=== PATIENT | male | born 1990 | race Caucasian/White ===

== ENCOUNTER 2021-03-31 20:03 | Emergency (ER) | payer OTHER, SELFPAY ==
[2021-03-31 20:04] VITALS: BP 152/69; PULSE 80; RESP 16; TEMP 36.3; O2SAT 97; BMI 31.5
--- NOTE | 2021-03-31 20:58 | EX.ED.UPPERE ---
HPI History of Present Illness Chief Complaint: Laceration Narrative Narrative: Patient presents with a laceration of the right wrist which happened at work while working on machinery. He has no other injury. His tetanus is up-to-date. PFSH PFSH Allergy/AdvReac Type Severity Reaction Status Date / Time Penicillins Allergy PT UNSURE Verified 03/31/21 20:06 OF REACTION Social History Smoking Status: Never smoker ROS ROS ED ROS Narrative Past medical history: none Medications: Reviewed Social history: Noncontributory Review of systems: Musculoskeletal: Back as above Skin: Laceration as above Neurological: No weakness or paresthesias Hematologic: No easy bleeding or easy bruising EXAM Physical Exam Narrative Exam Narrative: Physical exam General: Patient does not appear in significant distress . Head: Normocephalic, Atraumatic Neck: No C-spine tenderness Cardiovascular: Normal distal pulses Back: Nontender, Normal Inspection. Extremities: Right wrist shows a horizontal 4 cm laceration over the ulnar side proximal to the ulnar styloid region. No tendon involvement. Full strength and sensation. Skin: Laceration as above Neurological: Normal strength and sensation Const Vital Signs: 03/31/21 20:04 Temperature 97.4 F L Temperature Source Temporal Pulse Rate 80 Respiratory Rate 16 Blood Pressure 152/69 H Blood Pressure Mean 96 Pulse Ox 97 Oxygen Delivery Method Room Air MDM MDM MDM Narrative Medical decision making narrative: Wound was sutured. Will be discharged in stable condition. Antibiotics are not warranted. Procedures Lacerations lac: Length: 1.57 in Depth: Skin Shape: Linear Prep: Shure-Clens Laceration repair: Debrideded Number of Sutures/Nilda: 4 Suture Information: Ethilon Comment: Verbal consent obtained. Patient tolerated procedure well. Discharge Plan Triage Chief Complaint: Laceration ED Provider: Hayes Lemus Dx/Rx/DC Orders Clinical Impression: Arm laceration Instructions: ED Laceration: All Closures Referrals: [facility] PHYSICIANS] - 10 Day for suture removal Disposition Disposition: Home, Self Care
[2021-03-31] MEDS: Lidocaine 1% (20 ml mdv) 20 ML Vial INFILT (21:13)
== END 2021-03-31 21:24 | disposition home or self-care (01) ==
LOC: ED 21:20
PROVIDERS: Emergency Provider Emergency Medicine
DX: S61.511A Laceration without foreign body of right wrist, initial encounter (principal); X58.XXXA Exposure to other specified factors, initial encounter
CPT/HCPCS: 12001; 99284

== ENCOUNTER 2022-05-17 19:31 | Emergency (ER) | payer OTHER, SELFPAY ==
[2022-05-17 19:32] VITALS: BP 170/96; PULSE 97; RESP 16; TEMP 36.2; O2SAT 98; BMI 34.4
--- NOTE | 2022-05-17 20:42 | ED.RN ---
NO [facility] [employer] DIRECTOR [employer] [facility], PT GIVEN THE ADDRESS AND INSTRUCTIONS TO GO TO [facility]ORNING
--- NOTE | 2022-05-17 21:04 | EDS_ITS ---
HPI History of Present Illness Chief Complaint: Laceration Informant: patient Narrative Narrative: Patient has a laceration of the lateral inferior portion of the right knee that occurred at work approximately 2 hours ago. He now recalls his tetanus is up-to-date as of about 4 years ago. He cut this on a piece of metal. The metal scraped up his leg and caused a tear of the skin. It did not actually cut through his pants at any time that he was wearing. He has not had any drainage from the wound of significance. He does not have knee pain with motion. Putting gauze on it made it better. Nothing makes it worse. PFSH PFSH Home Medications doxycycline monohydrate 100 mg capsule 100 mg PO BID #14 caps 05/17/22 [Rx Last Taken Unknown] Allergy/AdvReac Type Severity Reaction Status Date / Time Penicillins Allergy PT UNSURE Verified 05/17/22 19:36 OF REACTION Surgical History History of ankle surgery Social History Smoking Status: Never smoker ROS ROS ED Constitutional Constitutional ED: Denies fever(s) Gastrointestinal Gastrointestinal: Denies nausea or vomiting Musculoskeletal Musculoskeletal: Reports other Details: Injury to right knee as in history of present illness Integumentary Reports other Details: Laceration to right knee Neurologic Neurologic: Denies paresthesias Psychiatric Psychiatric: Denies suicidal ideation Hematologic/Lymphatic Hematologic/Lymphatic: Denies easy bleeding or easy bruising EXAM Physical Exam Const Vital Signs: 05/17/22 19:32 Temperature 97.2 F L Temperature Source Temporal Pulse Rate 97 Respiratory Rate 16 Blood Pressure 170/96 H Blood Pressure Mean 120 Pulse Ox 98 Oxygen Delivery Method Room Air Positive well nourished and well developed General Appearance ED: well developed and NAD HEENT normocephalic and atraumatic Chest Wall inspection of chest normal Resp normal respiratory effort Extremity Extremity Narrative: There is a V shaped laceration with total length of about 4 cm at the inferior lateral aspect of the right knee. No bleeding or fluid. No fat globules. There is a slight abrasion of the skin above and below this. The pants that were covering this are actually not torn. This leads me to believe that the metal pressed in to the skin and tore this up. This is consistent with the jagged and irregular edges. There is no pain with knee motion. Clinically this does not appear to be into the joint. Neuro Sensorium / Orientation: alert Skin Skin Narrative: See above. MDM MDM MDM Narrative Medical decision making narrative: Procedure: Suture laceration: The area around was wound was scrubbed with Shur-Clens and saline. Sterilely prepped and draped. It was anesthetized with a total of 6 cc of 1% lidocaine with epinephrine locally. I then used further Shur-Clens and gauze to scrub the wound. It was copiously irrigated with over 200 cc. It was very clean. The edges were approximated with good cosmesis and hemostasis using 4 interrupted 4- 0 Ethilon. A stitch was not placed at the tip of the V due to the very thin skin in that area but this should heal well and I did get excellent coverage. Patient tolerated this well. We also probed the wound during this. It did not appear to go deep or anywhere near the joint. X-ray does not appear to show any intra-articular finding also. Because of the initial dirtiness of the wound, the environment and proximity of the joint we will cover him with antibiotics as an extra precaution. Radiography Diagnostic Testing: Three-view x-ray of the right knee read by me shows suspicion of wound at the lateral aspect consistent with his injury. But I see no intra-articular air or air in any other areas that would lead me to believe an intra-articular puncture. Final reading is pending. Discharge Plan Triage Chief Complaint: Laceration ED Provider: Giovanni Chu Dx/Rx/DC Orders Clinical Impression: Laceration of skin of right knee Prescriptions: New doxycycline monohydrate 100 mg capsule 100 mg PO BID Qty: 14 0RF Primary Care Provider: Care Physician,No Primary Referrals: Hayes Kinney MD [Med Staff - Active Staff] - 10-14 Days suture removal Care Physician,No Primary [Primary Care Provider] - Disposition Disposition: Home, Self Care
--- NOTE | 2022-05-17 21:45 | RAD_ITS ---
EXAM: XR RIGHT KNEE, 3 VIEWS CLINICAL INDICATION: trauma TECHNIQUE: Three views of the right knee. This report was created using [employer] report generation technology. COMPARISON: None. FINDINGS: BONES/JOINTS: Unremarkable. No acute fracture. No subluxation. Normal alignment. Preservation of the joint space. No sclerotic or destructive changes observed. SOFT TISSUES: Mild soft tissue swelling superior to the knee on the lateral view. No joint effusion. No radiopaque foreign body. RAD/Knee 3 Views IMPRESSION: Mild soft tissue swelling. No fracture or joint effusion. Electronically Signed: Jumana Chamberlain MD at 22:46 EDT ,
[2022-05-17] MEDS: Lidocaine 1% /Epi 1:100 (20ml) 20 ML Vial INFILT (21:52)
[2022-05-17] MEDS: Doxycycline 100 MG CAPSULE PO (22:39)
== END 2022-05-17 22:45 | disposition home or self-care (01) ==
PROVIDERS: Emergency Provider Emergency Medicine; Visit Provider Emergency Medicine
DX: S81.011A Laceration without foreign body, right knee, initial encounter (principal); W26.8XXA Contact with other sharp object(s), not elsewhere classified, initial encounter
CPT/HCPCS: 12002; 73562; 99284